=== PATIENT | female | born 1985 | race Caucasian/White ===

== ENCOUNTER 2017-09-01 16:04 | Emergency (ER) | payer OTHER ==
[~2017-09-01] VITALS: Ht 175.3 cm; Wt 136.1 kg
[2017-09-01] MEDS ORDERED: CLEOCIN HCL300 MG PO (16:30)
[2017-09-01] MEDS ORDERED: NORCO 5-325 TA1 EACH PO (16:30)
== END 2017-09-01 16:37 | disposition home or self-care (01) ==
LOC: ED 16:04
DX: K04.7 Periapical abscess without sinus (principal); F17.200 Nicotine dependence, unspecified, uncomplicated
CPT/HCPCS: 99283

== ENCOUNTER 2017-09-08 15:52 | Emergency (ER) | payer OTHER ==
[~2017-09-08] VITALS: Ht 175.3 cm; Wt 145.2 kg
[~2017-09-08 15:52] MED LIST: CLEOCIN HCL300 MG PO; NORCO 5-325 TA1 EACH PO
[2017-09-08] MEDS ORDERED: PENICILLIN V P500 MG PO (16:02)
== END 2017-09-08 16:08 | disposition home or self-care (01) ==
LOC: ED 15:52
DX: Z00.8 Encounter for other general examination (principal)